=== PATIENT | female | born 1930 | race Caucasian/White ===

== ENCOUNTER 2017-08-20 17:53 | Emergency (ER) | payer MEDICARE ==
--- NOTE | 2017-08-20 18:23 | UC ---
Lower Extremity/Ankle HPI - HPI Summary HPI Summary: 87 year old female presents with right leg pain. - History of Current Complaint Stated Complaint: RT LEG PAIN Time Seen by Provider: 08/20/17 18:22 Hx Obtained From: Patient Onset/Duration: Sudden Onset Severity Initially: Moderate Severity Currently: Moderate - Allergies/Home Medications Allergies/Adverse Reactions: Allergies Allergy/AdvReac Type Severity Reaction Status Date / Time No Known Allergies Allergy Verified 08/20/17 18:23 Home Medications: Home Medications Aspirin Low Dose CHEW TAB* [Aspirin Low Dose TAB*] 81 mg PO DAILY 08/20/17 [ History Confirmed 08/20/17] Clopidogrel TAB* [Plavix TAB*] 75 mg PO DAILY 08/20/17 [History Confirmed ] Ibuprofen TAB* [Advil TAB*] 200 mg PO Q6H PRN 08/20/17 [History Confirmed ] Levothyroxine Sodium [Levoxyl] 0.05 mg PO DAILY 08/20/17 [History Confirmed 05/28] Multiple Vitamins W/ Minerals [Multivitamin Womens] 1 tab PO 08/20/17 [History] Omeprazole CAP* [Prilosec CAP* 20 MG] 20 mg PO DAILY 08/20/17 [History Confirmed 08/20/17] Pravastatin (NF) [Pravachol (NF)] 40 mg PO DAILY 08/20/17 [History Confirmed 05/28] Propranolol TAB* [Inderal TAB*] 20 mg PO BID 08/20/17 [History Confirmed ] metFORMIN* [Glucophage 500 MG TAB *] 500 mg PO DAILY 08/20/17 [History Confirmed 08/20/17] Review of Systems Constitutional: Negative Skin: Negative Eyes: Negative ENT: Negative Respiratory: Negative Cardiovascular: Negative Gastrointestinal: Negative Genitourinary: Negative Motor: Negative Neurovascular: Negative Musculoskeletal: Other: - right knee pain Neurological: Negative Psychological: Negative All Other Systems Reviewed And Are Negative: Yes Physical Exam Triage Information Reviewed: Yes Vital Signs Reviewed: Yes Eye Exam: Normal ENT Exam: Normal Dental Exam: Normal Neck exam: Normal Neck: Positive: 1 Respiratory Exam: Normal Cardiovascular Exam: Normal Abdominal Exam: Normal Musculoskeletal: Positive: Other: - right pes anserine tenderness Neurological Exam: Normal Psychological Exam: Normal Skin Exam: Normal Lower Extremity Course/Dx - Differential Dx/Diagnosis Provider Diagnoses: right pes anserine tenderness Discharge - Discharge Plan Condition: Stable Disposition: HOME Prescriptions: Diclofenac 1% GEL (NF) [Voltaren 1% GEL (NF)] 1 gm TOPICAL BID PRN #1 tube PRN Reason: Pain Methylprednisolone [Medrol Dosepak 4 MG*] 4 mg PO .SEE TA INSTRUCTION #21 tab Patient Education Materials: Leg Pain (ED) Referrals: Abel Hernandez MD [Primary Care Provider] -
[2017-08-20 18:42] VITALS: BP 164/84
== END 2017-08-20 18:58 | disposition home or self-care (01) ==
LOC: UCCORT 17:53
DX: M25.561 Pain in right knee (principal)
CPT/HCPCS: 99202; G0463